=== PATIENT | female | born 1970 | race Caucasian/White ===

== ENCOUNTER 2018-04-29 14:45 | Inpatient (IN) | payer BC ==
[~2018-04-29] VITALS: Ht 172.7 cm; Wt 54.4 kg
[2018-04-29 15:24] VITALS: BP 104/70
[2018-04-29 15:26] LABS: HEMATOCRIT 31.6 % (37.0-47.0); HEMOGLOBIN 10.6 G/DL (12.0-16.0); MEAN CORPUSCULAR VOLUME 97 FL (80-99); PLATELET COUNT 198 K/UL (150-450); RED BLOOD COUNT 3.24 M/UL (4.20-5.40); RED CELL DISTRIBUTION WIDTH 11.6 % (11.6-14.8); WHITE BLOOD COUNT 2.9 K/UL (4.8-10.8)
[2018-04-29 15:31] LABS: BASOPHILS % (AUTO) 1.2 % (0.0-2.0); EOSINOPHILS % (AUTO) 1.3 % (0.0-3.0); LYMPHOCYTES % (AUTO) 33.8 % (20.0-45.0); MONOCYTES % (AUTO) 7.9 % (1.0-10.0); NEUTROPHILS % (AUTO) 55.8 % (45.0-75.0)
[2018-04-29 15:42] LABS: ANION GAP 12 mmol/L (5-15); BLOOD UREA NITROGEN 7 mg/dL (7-18); CALCIUM 8.6 MG/DL (8.5-10.1); CARBON DIOXIDE 27 MMOL/L (21-32); CHLORIDE 102 MMOL/L (98-107); CREATININE 0.5 MG/DL (0.55-1.30); POTASSIUM 3.7 MMOL/L (3.5-5.1); SODIUM 140 MMOL/L (136-145)
[2018-04-29 15:47] LABS: ALANINE AMINOTRANSFERASE 69 U/L (12-78); ALBUMIN 3.6 G/DL (3.4-5.0); ALBUMIN/GLOBULIN RATIO 1.2 (1.0-2.7); ALKALINE PHOSPHATASE 53 U/L (46-116); ASPARTATE AMINO TRANSFERASE 101 U/L (15-37); BILIRUBIN,TOTAL 0.6 MG/DL (0.2-1.0)
--- NOTE | 2018-04-29 16:13 | Emergency Room Report ---
History of Present Illness General Chief Complaint: Overdose Source: Family Member, Friend, Medical Record, EMS Present Illness HPI Patient presents with paramedics complaints of possible overdose Patient herself is not verbal History is obtained mainly from family However the history of present illness does stay Limited because of that reason Family reports of the patient's son committed suicide in December Patient has had a difficult time with this There was no other indications previously however today The patient's other son reports that the patient appeared more somnolent and not like herself Soon after the patient was found unresponsive by family And paramedics summoned There is a report that the patient was given 45 pills of Xanax 0.5 mg Also report of alcohol ingestion The specific time of ingestion is unclear Allergies: Coded Allergies: No Known Allergies (Unverified , 04/29/18) Patient History Limited by: medical condition Past Medical History: see triage record Pertinent Family History: unable to obtain Reviewed Nursing Documentation: PMH: Agreed; PSxH: Agreed Nursing Documentation-PMH Past Medical History: No History, Except For Review of Systems All Other Systems: limited - Other than the ones mentioned in the history of present illness all others are reviewed however they do stay limited due to the patient's mental status Physical Exam Vital Signs Date Time Temp Pulse Resp B/P (MAP) Pulse Ox O2 Delivery O2 Flow Rate FiO2 04/29/18 14:45 98.1 86 16 98/58 98 Room Air 98.1 Sp02 EP Interpretation: reviewed, normal General Appearance: other - Patient essentially decreased GCS with decreased responsiveness however gag reflex is intact Head: normocephalic, atraumatic Eyes: bilateral eye PERRL ENT: normal pharynx, no angioedema Neck: supple Respiratory: lungs clear, no respiratory distress, no retraction, no accessory muscle use Cardiovascular #1: regular rate, rhythm, no edema Gastrointestinal: non tender, soft Musculoskeletal: other - Patient does not follow commands however does have, withdrawal symptoms from physical stimuli of the upper and lower extremity airway remains intact. Neurologic: other - As above Skin: normal color, no rash, warm/dry Lymphatic: no adenopathy Procedures Critical Care Time Critical Care Time 45 minutes for initial critical presentation, concern for respiratory failure, concern for multiple ingestions and overdose multiple discussion with family not including any procedural time Medical Decision Making Diagnostic Impression: Primary Impression: Drug overdose Additional Impressions: Suicidal ideation Respiratory distress ER Course Given the patient's presentation multiple differentials are considered At this time patient maintaining appropriate gag reflex Does not require any acute airway intubation Remains on cardiac monitoring Patient's on-call level is elevated however drug screen was negative Potential possibilities for this are that the patient has just recently ingested the is otherwise a pain, possibly no ingestion In any event patient has continued to do significantly better throughout her stay Has become more awake and alert Patient appears to have clear signs of suicidal thoughts given this gesture Patient requiring further medical clearance given her mentation Is admitted with a sitter at bedside Psychiatric consultation is made Labs Test 04/29/18 15:08 04/29/18 15:15 White Blood Count 2.9 K/UL (4.8-10.8) Red Blood Count 3.24 M/UL (4.20-5.40) Hemoglobin 10.6 G/DL (12.0-16.0) Hematocrit 31.6 % (37.0-47.0) Mean Corpuscular Volume 97 FL (80-99) Mean Corpuscular Hemoglobin 32.5 PG (27.0-31.0) Mean Corpuscular Hemoglobin Concent 33.4 G/DL (32.0-36.0) Red Cell Distribution Width 11.6 % (11.6-14.8) Platelet Count 198 K/UL (150-450) Mean Platelet Volume 6.8 FL (6.5-10.1) Neutrophils (%) (Auto) 55.8 % (45.0-75.0) Lymphocytes (%) (Auto) 33.8 % (20.0-45.0) Monocytes (%) (Auto) 7.9 % (1.0-10.0) Eosinophils (%) (Auto) 1.3 % (0.0-3.0) Basophils (%) (Auto) 1.2 % (0.0-2.0) Sodium Level 140 MMOL/L (136-145) Potassium Level 3.7 MMOL/L (3.5-5.1) Chloride Level 102 MMOL/L (98-107) Carbon Dioxide Level 27 MMOL/L (21-32) Anion Gap 12 mmol/L (5-15) Blood Urea Nitrogen 7 mg/dL (7-18) Creatinine 0.5 MG/DL (0.55-1.30) Estimat Glomerular Filtration Rate > 60 mL/min (>60) Glucose Level 91 MG/DL (74-106) Calcium Level 8.6 MG/DL (8.5-10.1) Total Bilirubin 0.6 MG/DL (0.2-1.0) Aspartate Amino Transf (AST/SGOT) 101 U/L (15-37) Alanine Aminotransferase (ALT/SGPT) 69 U/L (12-78) Alkaline Phosphatase 53 U/L (46-116) Total Protein 6.6 G/DL (6.4-8.2) Albumin 3.6 G/DL (3.4-5.0) Globulin 3.0 g/dL Albumin/Globulin Ratio 1.2 (1.0-2.7) Salicylates Level < 0.2 ug/mL (2.8-20) Acetaminophen Level 3 MCG/ML (10-30) Serum Alcohol 141 mg/dL Urine HCG, Qualitative Negative (NEGATIVE) Urine Opiates Screen Negative (NEGATIVE) Urine Barbiturates Screen Negative (NEGATIVE) Phencyclidine (PCP) Screen Negative (NEGATIVE) Urine Amphetamines Screen Negative (NEGATIVE) Urine Benzodiazepines Screen Negative (NEGATIVE) Urine Cocaine Screen Negative (NEGATIVE) Urine Marijuana (THC) Screen Negative (NEGATIVE) Rhythm Strip Diag. Results EP Interpretation: yes Rate: 77 Rhythm: NSR, no PVC's, other - And nonspecific ST T wave changes Last Vital Signs Date Time Temp Pulse Resp B/P (MAP) Pulse Ox O2 Delivery O2 Flow Rate FiO2 04/29/18 15:24 80 13 104/70 97 Room Air 04/29/18 14:45 98.1 98.1 Status: improved Condition: Serious Scripts No Active Prescriptions or Reported Meds Referrals: NOT CHOSEN IPA/,REFERRING (PCP) Dex Moseley DO Apr 29, 2018 16:12
[2018-04-29 17:29] VITALS: BP 98/74
[2018-04-29 19:24] VITALS: BP 101/70
[2018-04-29] MEDS ORDERED: Milk of Magnesia 30ml Ud ORAL PRN (20:45)
[2018-04-29] MEDS ORDERED: Zolpidem 5mg tab ORAL PRN ×2 (20:45→21:15)
[2018-04-30] VITALS: BP 102/66
[2018-04-30 04:00] VITALS: BP 136/85
[2018-04-30 08:00] VITALS: BP 133/86
[2018-04-30 09:49] LABS: BASOPHILS % (AUTO) 0.8 % (0.0-2.0); EOSINOPHILS % (AUTO) 1.9 % (0.0-3.0); HEMATOCRIT 37.1 % (37.0-47.0); HEMOGLOBIN 12.3 G/DL (12.0-16.0); LYMPHOCYTES % (AUTO) 24.1 % (20.0-45.0); MEAN CORPUSCULAR VOLUME 98 FL (80-99); MONOCYTES % (AUTO) 9.1 % (1.0-10.0); NEUTROPHILS % (AUTO) 64.2 % (45.0-75.0); PLATELET COUNT 206 K/UL (150-450); RED BLOOD COUNT 3.77 M/UL (4.20-5.40); RED CELL DISTRIBUTION WIDTH 11.6 % (11.6-14.8); WHITE BLOOD COUNT 3.5 K/UL (4.8-10.8)
[2018-04-30 12:00] VITALS: BP 120/72
--- NOTE | 2018-04-30 13:01 | Consultation ---
History of Present Illness General Date patient seen: Apr 30, 2018 Chief Complaint: Overdose Present Illness HPI 47-year-old female broughtin to er s/p SA with alcohol and pills. the pt was unaware of what she took. her friends gave her the pillls. The patient was obtunded and unable to clear medically therefore she was admitted to medical floor. The patient's son committed suicide in December of this year and the patient has had difficulty dealing with this. the pt drinks everyday and is hopeless. she is anxious and depressed. however minimizing sxs. the pt denies si however was tearful and distressed Allergies: Coded Allergies: PENICILLIN G (Verified Allergy, Mild, 04/29/18) Medication History No Active Prescriptions or Reported Meds Patient History Limited by: medical condition History Provided By: Patient, Medical Record, PMD Healthcare decision maker Resuscitation status Full Code Advanced Directive on File Past Medical/Surgical History Past Medical/Surgical History: (1) Respiratory distress (2) Drug overdose (3) Suicidal ideation Review of Systems Psychiatric: Reports: prior hx, anxiety, depressed feelings, SI Physical Exam General Appearance: no apparent distress, alert Neurologic: oriented x 3, responsive, depressed affect Last 24 Hour Vital Signs Date Time Temp Pulse Resp B/P (MAP) Pulse Ox O2 Delivery O2 Flow Rate FiO2 04/30/18 12:00 66 04/30/18 08:00 80 04/30/18 08:00 97.8 74 20 133/86 96 97.8 04/30/18 04:00 98.1 68 21 136/85 98 98.1 04/30/18 04:00 62 04/30/18 00:00 98.2 66 20 102/66 99 98.2 04/30/18 00:00 66 04/29/18 20:00 65 04/29/18 19:24 97.7 71 20 101/70 98 Room Air 97.7 04/29/18 18:45 98.2 82 17 107/82 98 Room Air 98.3 04/29/18 17:29 98.3 74 15 98/74 97 Room Air 98.3 04/29/18 15:24 80 13 104/70 97 Room Air 04/29/18 15:22 80 13 Room Air 04/29/18 14:45 98.1 86 16 98/58 98 Room Air 98.1 Intake and Output 04/29/18 04/30/18 19:00 07:00 Intake Total 1652 ml Output Total 800 ml 400 ml Balance -800 ml 1252 ml Intake Oral 270 ml IV Total 482 ml Other 900 ml Output Urine Total 800 ml 400 ml # Voids 3 Laboratory Tests Test 04/29/18 15:08 04/29/18 15:15 04/30/18 09:30 White Blood Count 2.9 K/UL (4.8-10.8) L 3.5 K/UL (4.8-10.8) L Red Blood Count 3.24 M/UL (4.20-5.40) L 3.77 M/UL (4.20-5.40) L Hemoglobin 10.6 G/DL (12.0-16.0) L 12.3 G/DL (12.0-16.0) Hematocrit 31.6 % (37.0-47.0) L 37.1 % (37.0-47.0) Mean Corpuscular Volume 97 FL (80-99) 98 FL (80-99) Mean Corpuscular Hemoglobin 32.5 PG (27.0-31.0) H 32.6 PG (27.0-31.0) H Mean Corpuscular Hemoglobin Concent 33.4 G/DL (32.0-36.0) 33.2 G/DL (32.0-36.0) Red Cell Distribution Width 11.6 % (11.6-14.8) 11.6 % (11.6-14.8) Platelet Count 198 K/UL (150-450) 206 K/UL (150-450) Mean Platelet Volume 6.8 FL (6.5-10.1) 6.9 FL (6.5-10.1) Neutrophils (%) (Auto) 55.8 % (45.0-75.0) 64.2 % (45.0-75.0) Lymphocytes (%) (Auto) 33.8 % (20.0-45.0) 24.1 % (20.0-45.0) Monocytes (%) (Auto) 7.9 % (1.0-10.0) 9.1 % (1.0-10.0) Eosinophils (%) (Auto) 1.3 % (0.0-3.0) 1.9 % (0.0-3.0) Basophils (%) (Auto) 1.2 % (0.0-2.0) 0.8 % (0.0-2.0) Sodium Level 140 MMOL/L (136-145) Potassium Level 3.7 MMOL/L (3.5-5.1) Chloride Level 102 MMOL/L (98-107) Carbon Dioxide Level 27 MMOL/L (21-32) Anion Gap 12 mmol/L (5-15) Blood Urea Nitrogen 7 mg/dL (7-18) Creatinine 0.5 MG/DL (0.55-1.30) L Estimat Glomerular Filtration Rate > 60 mL/min (>60) Glucose Level 91 MG/DL (74-106) Calcium Level 8.6 MG/DL (8.5-10.1) Total Bilirubin 0.6 MG/DL (0.2-1.0) Aspartate Amino Transf (AST/SGOT) 101 U/L (15-37) H Alanine Aminotransferase (ALT/SGPT) 69 U/L (12-78) Alkaline Phosphatase 53 U/L (46-116) Total Protein 6.6 G/DL (6.4-8.2) Albumin 3.6 G/DL (3.4-5.0) Globulin 3.0 g/dL Albumin/Globulin Ratio 1.2 (1.0-2.7) Salicylates Level < 0.2 ug/mL (2.8-20) L Acetaminophen Level 3 MCG/ML (10-30) L Serum Alcohol 141 mg/dL Urine HCG, Qualitative Negative (NEGATIVE) Urine Opiates Screen Negative (NEGATIVE) Urine Barbiturates Screen Negative (NEGATIVE) Phencyclidine (PCP) Screen Negative (NEGATIVE) Urine Amphetamines Screen Negative (NEGATIVE) Urine Benzodiazepines Screen Negative (NEGATIVE) Urine Cocaine Screen Negative (NEGATIVE) Urine Marijuana (THC) Screen Negative (NEGATIVE) Height (Feet): 5 Height (Inches): 8.00 Weight (Pounds): 120 Medications Current Medications Medications (Trade) Dose Ordered Sig/Priyanka Route PRN Reason Start Time Stop Time Status Last Admin Dose Admin Acetaminophen (Tylenol) 650 mg Q4H PRN ORAL Mild Pain/Temp > 100.5 04/29/18 20:45 05/29/18 20:44 Al Hydroxide/Mg Hydroxide (Mylanta) 30 ml Q4H PRN ORAL Abdominal cramps 04/29/18 20:45 05/29/18 20:44 Magnesium Hydroxide (Mom) 30 ml DAILYPRN PRN ORAL Constipation 04/29/18 20:45 05/29/18 20:44 Pantoprazole (Protonix) 40 mg DAILY ORAL 04/30/18 09:00 05/30/18 08:59 04/30/18 08:19 Sodium Chloride 1,000 ml @ 100 mls/hr Q10H IV 04/29/18 20:45 05/29/18 20:44 04/30/18 06:20 Zolpidem Tartrate (Ambien) 5 mg HSPRN PRN ORAL Insomnia 04/29/18 21:15 05/06/18 20:44 Assessment/Plan Status: unchanged Assessment/Plan the pt is still at imminent dts and the pt needs to go to a psych inpatient the pt should be placed on a 5150. Noah Ruelas M.D. Apr 30, 2018 13:01
[2018-04-30] MEDS ORDERED: Milk of Magnesia 30ml Ud ORAL PRN (14:30)
--- NOTE | 2018-04-30 14:45 | History and Physical Report ---
DATE OF ADMISSION: 04/29/2018 REASON FOR ADMISSION: Overdose. HISTORY OF PRESENT ILLNESS: The patient is a 47-year-old female brought in for possible overdose with Ativan. The patient was obtunded and unable to clear medically. The patient presently is well, comfortable, and alert. The patient's family apparently reports that the patient's son committed suicide in December of this year and the patient has had difficulty dealing with this. Currently, the patient is stable, no distress. The patient apparently took 45 pills of benzodiazepine and also alcohol ingestion. PAST MEDICAL HISTORY: Otherwise negative. MEDICATIONS: Otherwise negative. SOCIAL HISTORY: As above. PHYSICAL EXAMINATION: GENERAL: A well-developed female, comfortable, and alert. VITAL SIGNS: Otherwise stable. LUNGS: Otherwise clear. CARDIAC: Normal S1, S2. Regular rate and rhythm. ABDOMEN: Soft, nontender. EXTREMITIES: No edema. LABORATORY DATA: Reviewed. Notable for white count 2.9, hemoglobin 10.6. Toxicology screen notable for alcohol level. IMPRESSION: 1. Suicidal overdose with Ativan and alcohol. 2. Evidence of leukopenia and anemia. RECOMMENDATIONS: Repeat laboratories. Psychiatric evaluation and discharge to psychiatric facility and/or psychiatric clearance for home. Destin Tidwell M.D. DR: ANTONIETA JOB#: [id number] CC:
[2018-04-30 16:00] VITALS: BP 120/80
[2018-04-30] MEDS ORDERED: PROTONIX40 MG ORAL (21:05)
[2018-04-30] MEDS ORDERED: ACETAMINOPHEN325 M1 ORAL (21:12)
[2018-04-30] MEDS ORDERED: MILK OF MA2400 MG/10 ORAL (21:13)
[2018-04-30] MEDS ORDERED: Zolpidem 5mg tab ORAL PRN (21:15)
[2018-04-30] MEDS ORDERED: AMBIEN5 M1 PO (21:17)
[2018-04-30] MEDS ORDERED: mylanta PO (21:19)
--- NOTE | 2018-05-01 12:16 | Cardiology Report ---
APPROVED REPORT EKG Measurement Heart [id number] Normal sinus rhythm Left axis deviation Incomplete right bundle branch block Nonspecific ST and T wave abnormality Abnormal ECG
--- NOTE | 2018-05-03 14:24 | Discharge Summary ---
Discharge Summary Discharge Summary _ DATE OF ADMISSION: 04/29/2018 DATE OF DISCHARGE: 04/30/2018 REASON FOR ADMISSION: 47 years old female was brought by paramedics with evidence of possible overdose. Apparently patient's son committed suicide in December this year , and patient had difficult time dealing with her loss and grieving process. The patient 's other son stated that patient appeared to be somnolent and not her usual self. Paramedics were called. Apparently patient was drinking alcohol and ingested Xanax pulls. In ED patient was placed on manager production . She was able to maintain appropriate gag reflex and not require any airway intubation. Alcohol level was 141. Urine toxicology screen was negative. WBC 2.9 hemoglobin 10.6 , hematocrit 31.6. Patient admitted for further management with diagnosis of suicidal attempt, drug overdose, anemia, leukopenia. CONSULTANTS: psychiatrist [facility] COURSE: Patient admitted. Psychiatric evaluation was requested. Sitter provided for safety. Patient was on the IV hydration. Patient started on PPI and Mylanta as needed. Psychiatry seen and evaluated patient . Psychiatrist stated that the patient presented imminent danger to self and required psychiatric inpatient management under 5150. Placement was found at [facility]. Patient was stable for transfer for further evaluation and management. FINAL DIAGNOSES: Suicidal attempt ( with ETOH and drugs/Xanax) Drug overdose Respiratory distress Anemia Leukopenia DISCHARGE MEDICATIONS: See medication reconciliation list. DISCHARGE INSTRUCTIONS: Patient was transferred to psychiatric inpatient [facility] on 5115 for further management. I have been assigned to dictate discharge summary for this account. I was not involved in the patient's management. Dayan Whitaker NP May 03, 2018 14:24
== END 2018-04-30 22:10 | DRG 918 ==
LOC: EDBD 14:45 → EMR 15:21 → 2W 16:28 → EDBEDREQ 18:00 → 4E 04-30 13:44
DX: T42.4X2A Poisoning by benzodiazepines, intentional self-harm, initial encounter (principal); R45.851 Suicidal ideations; T51.0X2A Toxic effect of ethanol, intentional self-harm, initial encounter; R06.03 Acute respiratory distress; D64.9 Anemia, unspecified; Z88.0 Allergy status to penicillin
CPT/HCPCS: 36415; 80053; 80307; 80329; 81025; 85025; 93005; 99291